=== PATIENT | male | born 1995 | race Caucasian/White ===

== ENCOUNTER 2020-01-23 13:20 | Emergency (ER) | payer SELFPAY ==
[2020-01-23 13:22] VITALS: BP 144/91; PULSE 121; RESP 16; TEMP 36.5; O2SAT 99; BMI 20.2
[2020-01-23] MEDS: INHALER, ASSIST DEVICES 1 EACH SPACER INHALATION (14:13)
[2020-01-23] MEDS: Naproxen 500 MG Tablet PO (14:13)
--- NOTE | 2020-01-23 14:24 | RAD_ITS ---
STUDY: X-RAY CHEST REASON FOR EXAM: Male, 24 years old. Cough, SOB, headache. TECHNIQUE: AP portable upright view of the chest on 2 images. COMPARISON: None. FINDINGS: The lungs are clear and expanded. There is no demonstrated pleural abnormality. Normal size heart. Normal mediastinum and aquiles. Normal visualized pulmonary arteries. Normal visualized aortic arch and descending thoracic aorta. Normal visualized thoracic spine. Normal visualized ribs, clavicles, and shoulders. There is no demonstrated abnormality of the visualized soft tissue structures of the upper abdomen. RAD/Chest 1 View (Portable) IMPRESSION: Normal x-ray examination of the chest. Electronically Signed: Christoph Jimenez MD at 15:29 EDT , Service support ,
--- NOTE | 2020-01-23 15:24 | ED.VIS.GEN ---
History of Present Illness Chief Complaint: General Illness Detail of Chief Complaint: Multiple complaints Informant: Patient Narrative: Patient presents with multiple complaints. He reports cough and shortness of breath for greater than 1 week. He reports right lower back pain and states he is missed work for last couple days and is requesting a work note. He is also complaining of hemorrhoids, although dates that is getting better. He also complains of depression and is wanting some information for follow-up. He denies suicidal ideation currently. He denies having fever or chills. He does report having asthma as a child but has not used an inhaler in several years. - Past Medical History (1) Asthma Status: Chronic (2) Depression Status: Chronic Past Medical History - Allergies and Home Meds Allergies/Adverse Reactions: Allergies No Known Allergies Allergy (Verified 01/23/20 13:22) Lives: Alone Smoking Status: Current every day smoker Review of Systems General: Denies: Chills, Fever Eyes: Denies: Visual changes - bilaterally ENT: Reports: Sore throat. Denies: Bilateral ear pain Cardiovascular: Denies: Chest pain Respiratory: Reports: Dyspnea, Cough, Sputum - Clear sputum Gastrointestinal: Denies: Abdominal pain, Nausea, Vomiting, Diarrhea Genitourinary: Denies: Dysuria Musculoskeletal: Reports: Back pain, Extremity Pain - Intermittent joint pain Skin: Denies: Rash Neurological: Denies: Headache Psych: Reports: Depression Hematologic: Denies: Easy bruising, Easy bleeding Allergy: Denies: Uticaria Physical Exam Vital Signs/Narrative: Vital Signs Temp Pulse Resp BP Pulse Ox 01/23/20 13:22 97.7 F L 121 H 16 144/91 H 99 Inital Vital Signs reviewed: Yes General: Well nourished ENT: Moist mucous membranes, TM's clear, - - Posterior pharynx normal Neck: Supple Cardiovascular: Regular rate, Regular rhythm Respiratory: No distress, - - Expiratory wheezes throughout Abdomen: Soft, Nontender Rectal: - - Small external hemorrhoid not currently inflamed. No bleeding. Back: - - Reproducible tenderness in the right lumbar paraspinal muscles. No midline tenderness. No skin rash or overlying skin change. Extremities: Nontender Skin: Normal color Neurological: Alert, Oriented x3, Normal Strength, Normal Sensation Psychological: Depressed - Patient denies suicidal ideation. Diagnostic/Tx/Re-eval Chest X-Ray - ED: 1 View, Read by ED Physician, Normal, Heart, Lungs, Mediastinum - Medical Decision Making Patient was given naproxen for pain. He was given 4 puffs of an albuterol inhaler with a spacer. On repeat auscultation lung sounds are clear on the left with some continued wheezing noted on the right. Patient will take his albuterol home to use. He will be written for a short course of steroids. He is referred to both her primary care physician as well as to the counseling center for psychiatric follow-up. He is given a work note with restrictions. ED Disposition - Plan for ED Patient: Disposition: Home or Assisted Living Diagnosis: Asthma exacerbation, Strain of lumbar paraspinal muscle Instructions: ED LUMBAR SPRAIN/STRAIN, ED REACTIVE AIRWAY DISEASE Adult Prescriptions: Prednisone [Deltasone] 40 mg PO DAILY #10 tab Transmission Status: Pending to [id number] Referrals: Stefan Reynolds DO [NON CLINICAL AFFILIATE] - As soon as possible Counseling,Center [GROUP OF PHYSICIANS] - As soon as possible
[2020-01-23 15:38] VITALS: RESP 14
== END 2020-01-23 15:39 | disposition home or self-care (01) ==
LOC: ED 15:34
PROVIDERS: Emergency Provider Emergency Medicine
DX: J45.901 Unspecified asthma with (acute) exacerbation (principal); S39.012A Strain of muscle, fascia and tendon of lower back, initial encounter; X58.XXXA Exposure to other specified factors, initial encounter; Y93.9 Activity, unspecified; Y92.9 Unspecified place or not applicable; F17.200 Nicotine dependence, unspecified, uncomplicated; F32.9 Major depressive disorder, single episode, unspecified
CPT/HCPCS: 71045; 99283

== ENCOUNTER 2020-01-26 20:06 | Emergency (ER) | payer SELFPAY ==
[2020-01-26 20:07] VITALS: BP 147/88; PULSE 113; RESP 18; TEMP 36.4; O2SAT 100; BMI 21.2
--- NOTE | 2020-01-26 20:56 | ED.DCSUM_ITS ---
- ER Visit Summary Date of Service: 01/26/20 Chief Complaint: Back pain History of Present Illness: The patient is a 24 M with right lower back pain. The pain has been bothering him for years. He was in the ED previously and prescribed prednisone. He has continued pain. He thinks his symptoms are getting worse. He said the pain sometimes migrates to the left side. He also reports paresthesias in his right foot and right thigh. Denies any neurologic symptoms on the left. Denies any loss of bowel or bladder control. Denies sexual dysfunction. Denies trauma. He denies fever or systemic symptoms. He has some other complaints which include tingling in his right hand and also he feels that his left testicle is riding higher than the right, but it is not painful. He denies any other symptoms. Physical Examination: Afebrile and vital signs unremarkable. Back shows normal inspection. Tenderness to the right lumbar back with light touch. Straight leg raise negative. Good strength and sensation except for subjective paresthesias in his right medial thigh and right medial foot. Neurovascular intact otherwise. Good range of motion. Abdomen is nontender without masses. inspection is unremarkable. Test Results: None indicated Emergency Department Course and Treatment: Patient likely has a radiculopathy. Nothing to suggest cauda equina. He will be treated with anti-inflammatories and muscle relaxers. Continue prednisone. He has a history of opioid abuse, so we will avoid narcotic pain medications. He will be referred to the [facility]. Treatment Plan: As above Disposition: Discharge Impression: Right-sided sciatica This note was generated with [employer] dictation software. It may contain incorrect words, spelling, and punctuation that were not noted in review of the chart prior to signing ED Disposition - Plan for ED Patient: Referrals: Care Physician,No Primary [Primary Care Provider] -
--- NOTE | 2020-01-26 20:59 | ED.DEP ---
ED Disposition - Plan for ED Patient: Instructions: ED Back Pain Acute or Chronic Prescriptions: cycloBENZAPRine HCl [Flexeril] 10 mg PO TID PRN #20 tab PRN Reason: Muscle Spasm Prescription Printed Naproxen [Naprosyn] 500 mg PO BID PRN #20 tab Prescription Printed Referrals: Bailey Kaplan [NON-STAFF] -
[2020-01-26] MEDS: Naproxen 500 MG Tablet PO (21:07)
[2020-01-26] MEDS: cycloBENZAPRine HCl 10 MG Tablet PO (21:07)
== END 2020-01-26 21:14 | disposition home or self-care (01) ==
LOC: ED 21:00
PROVIDERS: Emergency Provider Emergency Medicine
DX: M54.41 Lumbago with sciatica, right side (principal); G89.29 Other chronic pain
CPT/HCPCS: 99283